=== PATIENT | female | born 1985 | race Hispanic/Latino ===

== ENCOUNTER 2018-03-10 16:51 | Emergency (ER) | payer SELFPAY ==
--- NOTE | 2018-03-10 18:06 | EDPHYS ---
Physician Documentation [facility] Name: Zeenat Santizo Age: 32 yrs Sex: Female : 1985 Arrival Date: 03/10/2018 Time: 16:53 Bed 25 Private MD: None, None ED Physician Blas Edgar HPI: 03/10 17:15 This 32 yrs old Female presents to ER via Ambulatory with complaints of cp Headache, Sore Throat. 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 - Social history:: Smoking status: Patient/guardian denies using tobacco. ROS: 17:20 Constitutional: Negative for body aches, chills, fever, poor PO intake. cp 17:20 Eyes: Negative for injury, pain, redness, and discharge. cp 17:20 ENT: Positive for sore throat, Negative for drainage from ear(s), ear pain, sinus pain, difficulty swallowing, difficulty handling secretions, hoarseness. 17:20 Neck: Negative for pain with movement, pain at rest, stiffness. 17:20 Cardiovascular: Negative for chest pain, edema, palpitations. 17:20 Respiratory: Negative for cough, shortness of breath, wheezing. 17:20 Abdomen/GI: Negative for abdominal pain, nausea, vomiting, and diarrhea. 17:20 Skin: Negative for cellulitis, rash. 17:20 Neuro: Positive for headache, Negative for altered mental status, weakness. 17:20 All other systems are negative. Exam: 17:25 Constitutional: The patient appears in no acute distress, alert, awake, non-toxic, well cp developed, well nourished. 17:25 Head/Face: Normocephalic, atraumatic. cp 17:25 Eyes: Periorbital structures: appear normal, Conjunctiva: normal, no exudate, no injection, Sclera: no appreciated abnormality, Lids and lashes: appear normal, bilaterally. Vital Signs: 16:57 BP 146 / 106; Pulse 95; Resp 16; Temp 97.8(TE); Pulse Ox 98% on R/A; Weight 108.86 kg; la1 Height 5 ft. 5 in. (165.10 cm); 18:11 BP 138 / 89; Pulse 92; Resp 16; Pulse Ox 100% ; tl3 16:57 Body Mass Index 39.94 (108.86 kg, 165.10 cm) la1 MDM: 17:03 Patient medically screened. 18:04 Data reviewed: vital signs, nurses notes, lab test result(s), and as a result, I will cp discharge patient. 18:04 Counseling: I had a detailed discussion with the patient and/or guardian regarding: the cp historical points, exam findings, and any diagnostic results supporting the discharge/admit diagnosis, lab results, to return to the emergency department if symptoms worsen or persist or if there are any questions or concerns that arise at home. 03/10 17:09 Order name: Strep; Complete Time: 18:02 03/10 18:02 Interpretation: Reviewed. 03/10 17:57 Order name: Throat Culture EDSD Administered Medications: No medications were administered Disposition: 03/10/18 18:06 Discharged to Home. Impression: Acute pharyngitis. - Condition is Stable. - Discharge Instructions: Canker Sores, Pharyngitis, Viral Infections, [id number]. - Prescriptions for Ibuprofen 800 mg Oral Tablet - take 1 tablet by ORAL route every 8 hours As needed take with food; 30 tablet. - Medication Reconciliation Form, Thank You Letter, Antibiotic Education, Prescription Opioid Use form. - Follow up: Private Physician; When: 2 - 3 days; Reason: Recheck today's complaints. - Problem is new. - Symptoms are unchanged. Addendum: 03/12/2018 09:06 Co-signature as Attending Physician, Blas Edgar MD I agree with the assessment and c mendez plan of care. Signatures: Dispatcher [employer] EDSD Blas Edgar MD MD cha Attema, Lee, RN RN la1 Blas Javed PA PA cp Lowrey, Tammy, RN RN tl3
--- NOTE | 2018-03-10 18:06 | ER ---
Nurse's Notes [facility] Name: Zeenat Santizo Age: 32 yrs Sex: Female : 1985 Arrival Date: 03/10/2018 Time: 16:53 Bed 25 Private MD: None, None Diagnosis: Acute pharyngitis Presentation: 03/10 16:56 Presenting complaint: Patient states: I have had some pain in the right side of the la1 back of my throat and I feel a fullness/pressure in my head as well as some dizziness. Transition of care: patient was not received from another setting of care. Onset of symptoms was March 10, 2018. Initial Sepsis Screen: Does the patient meet any 2 criteria? No. Patient's initial sepsis screen is negative. Does the patient have a suspected source of infection? No. Patient's initial sepsis screen is negative. Care prior to arrival: None. 16:56 Method Of Arrival: Ambulatory la1 16:56 Acuity: ANNETTE 3 la1 Triage Assessment: 18:19 Headache History: Denies prior headaches. General: Appears comfortable, well groomed, tl3 well developed, well nourished, Behavior is appropriate for age. Pain: Pain currently is 5 out of 10 on a pain scale. Pain began 1 week and a half ago Also complains of no other associated symptoms. 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 - Social history:: Smoking status: Patient/guardian denies using tobacco. Screenin:35 Abuse screen: Denies threats or abuse. Nutritional screening: No deficits noted. tl3 Tuberculosis screening: No symptoms or risk factors identified. Fall Risk None identified. Assessment: 17:35 General: Appears in no apparent distress. well groomed, well developed, well nourished, tl3 Behavior is calm, cooperative, appropriate for age. Pain: Complains of pain in right side of throat. Neuro: Level of Consciousness is awake, alert, obeys commands, Oriented to person, place, time, situation, Appropriate for age. Cardiovascular: Heart tones S1 S2 present. Respiratory: Breath sounds are clear bilaterally. GI: No signs and/or symptoms were reported involving the gastrointestinal system. : No signs and/or symptoms were reported regarding the genitourinary system. EENT: Reports difficulty swallowing since for the last week and a half, but getting worse the last couple of days. Derm: No signs and/or symptoms reported regarding the dermatologic system. Musculoskeletal: No signs and/or symptoms reported regarding the musculoskeletal system. 18:11 Reassessment: Patient appears in no apparent distress at this time. No changes from tl3 previously documented assessment. Patient and/or family updated on plan of care and expected duration. Pain level reassessed. Patient is alert, oriented x 3, equal unlabored respirations, skin warm/dry/pink. Vital Signs: 16:57 BP 146 / 106; Pulse 95; Resp 16; Temp 97.8(TE); Pulse Ox 98% on R/A; Weight 108.86 kg; la1 Height 5 ft. 5 in. (165.10 cm); 18:11 BP 138 / 89; Pulse 92; Resp 16; Pulse Ox 100% ; tl3 16:57 Body Mass Index 39.94 (108.86 kg, 165.10 cm) la1 ED Course: 16:53 Patient arrived in ED. mr 16:53 None, None is Private Physician. mr 16:56 Triage completed. la1 16:57 Arm band placed on right wrist. la1 17:03 [facility]aved [facility]. cp 17:03 Blas Edgar MD is Attending Physician. cp 17:32 Grace Mclean, MG is Primary Nurse. tl3 17:35 No apparent distress. Awaiting lab results. tl3 17:35 Patient has correct armband on for positive identification. Bed in low position. Call tl3 light in reach. Side rails up X 1. Adult w/ patient. 17:35 No provider procedures requiring assistance completed. Strep swab sent to lab. tl3 18:11 Patient did not have IV access during this emergency room visit. tl3 18:20 Throat Culture Sent. tl3 Administered Medications: No medications were administered Outcome: 18:06 Discharge ordered by . cp 18:11 Discharged to home ambulatory. tl3 18:11 Condition: good 18:11 Discharge instructions given to patient, Instructed on discharge instructions, follow up and referral plans. medication usage, Demonstrated understanding of instructions, follow-up care, medications, Prescriptions given X 1, stressed using equal mixture of Benadryl and Liquid antiacid as a swish and spit mixture to numb throat pain 18:21 Patient left the ED. tl3 Signatures: Zeenat Pisano Lee, RN RN la1 Blas Javed PA PA cp Lowrey, Tammy, MG RN tl3
== END 2018-03-10 18:21 | disposition home or self-care (01) ==
LOC: ER 16:51
DX: J02.9 Acute pharyngitis, unspecified (principal)
CPT/HCPCS: 87070; 87081; 99283

== ENCOUNTER 2019-02-28 10:09 | Emergency (ER) | payer SELFPAY ==
[2019-02-28] MEDS ORDERED: ONDANSETRON 4 MG/2 ML VIAL ONE (10:55)
[2019-02-28] MEDS ORDERED: MORPHINE 4 MG/ML SYR ONE (10:55)
[2019-02-28] MEDS ORDERED: NA CHLORIDE 0.9% 1,000 ML ONE (10:55)
[2019-02-28 11:47] LABS: Absolute Lymphocytes (CBC) 0.8 K/uL (0.7-4.9); Absolute Monocytes 0.7 K/uL (0.1-1.3); Absolute Neutrophil 1.6 K/uL (1.8-8.0); Basophils % 1.1 % (0-1.3); Eosinophils % 1.9 % (0-4.4); Hematocrit 41.6 % (36.0-45.0); MPV 9.8 fL (7.6-11.3); Monocytes % 22.1 % (3.3-12.3); RBC Red Blood Cell Count 4.98 M/uL (3.86-4.86)
[2019-02-28 11:59] LABS: ALT/SGPT 48 U/L (12-78); AST/SGOT 30 U/L (15-37); Albumin 3.3 g/dL (3.4-5.0); Alkaline Phosphatase 115 U/L (45-117); BUN Blood Urea Nitrogen 9 mg/dL (7-18); Bicarbonate 27 mmol/L (21-32); Bilirubin Direct 0.2 mg/dL (0-0.2); Bilirubin Total 0.8 mg/dL (0.2-1.0); Glucose Level 258 mg/dL (74-106); Lipase 86 U/L (73-393); Potassium 3.7 mmol/L (3.5-5.1); Sodium Level 139 mmol/L (136-145)
[2019-02-28 12:19] LABS: Urine Blood 2+ (NEG); Urine Glucose 2+ (NEG); Urine Protein NEGATIVE (NEG); Urine Specific Gravity 1.015 (1.005-1.030); Urine pH 5.5 (5.0-7.0)
[2019-02-28 12:34] LABS: Blood Morphology Comment NOT SEEN (NOT SEEN); Platelet Estimate DECR
--- NOTE | 2019-02-28 13:03 | RAD REPORT ---
EXAM DESCRIPTION: CT - Abdomen Pelvis W Contrast - 02/28/2019 12:53 pm CLINICAL HISTORY: Abdominal pain, back pain, flank pain COMPARISON: CT imaging February 2017 and January 2015 TECHNIQUE: Biphasic, helical CT imaging of the abdomen and pelvis was performed following 100 ml non -ionic IV contrast. Oral contrast was given. All CT scans are performed using dose optimization technique as appropriate and may include automated exposure control or mA/KV adjustment according to patient size. FINDINGS: No suspicious findings in the lung bases. Fatty infiltration changes are again noted in the liver. No focal liver lesion identified. Spleen and pancreas show no suspicious findings. Gallbladder and biliary tree are also without suspicious findi ng. Symmetric renal function is seen with no hydronephrosis or suspicious renal mass. No pyelonephritis o r acute parenchymal process. Partially filled urinary bladder shows no suspicious finding. Uterus and ovaries show no suspicious findings. Approximately 2.7 centimeter right adrenal mass has not changed back to 2015. No dilated bowel loops or bowel wall thickening. No appendicitis. No acute GI process identifiable. N o free air, free fluid or inflammatory stranding. No hernia, mass or bulky lymphadenopathy. No suspicious bony findings. IMPRESSION: No acute or emergent CT abdomen and pelvis findings. Fatty infiltration of the liver and right adrenal mass are stable back to 2015.
[2019-02-28] MEDS ORDERED: LIDOCAINE VISCOUS 2% SOLN 15 ML UDC ONE (14:14)
[2019-02-28] MEDS ORDERED: MAGNE/ALUM HYDROXD 30 ML UCUP ONE (14:14)
--- NOTE | 2019-02-28 14:59 | EDPHYS ---
Physician Documentation [facility] Name: Zeenat Santizo Age: 33 yrs Sex: Female : 1985 Arrival Date: 02/28/2019 Time: 10:11 Bed 15 Private MD: None, None ED Physician Denver Yee HPI: 02/28 11:00 This 33 yrs old Female presents to ER via Ambulatory with complaints of Back pm1 Pain, Vomiting. 11:00 The patient presents with pain that is acute, with no known mechanism of injury. The pm1 symptoms are located in the mid back area and left mid back. Onset: The symptoms/episode began/occurred 3 day(s) ago. Location: abdomen. Associated signs and symptoms: Pertinent positives: nausea, Pertinent negatives: chest pain, constipation, dysuria, fever, headache, numbness, tingling, vomiting, diarrhea. The problem was sustained without known cause. Modifying factors: The patient symptoms are alleviated by nothing, the patient symptoms are aggravated by nothing. The patient has not experienced similar symptoms in the past. The patient has not recently seen a physician. 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 - Ebola Screening: : No symptoms or risks identified at this time. - Social history:: Smoking status: Patient/guardian denies using tobacco. ROS: 11:00 Constitutional: Negative for fever, chills, and weight loss, Eyes: Negative for injury, pm1 pain, redness, and discharge, ENT: Negative for injury, pain, and discharge, Neck: Negative for injury, pain, and swelling, Cardiovascular: Negative for chest pain, palpitations, and edema, Respiratory: Negative for shortness of breath, cough, wheezing, and pleuritic chest pain. 11:00 : Negative for injury, bleeding, discharge, and swelling, MS/Extremity: Negative for injury and deformity, Skin: Negative for injury, rash, and discoloration, Neuro: Negative for headache, weakness, numbness, tingling, and seizure. 11:00 Abdomen/GI: Positive for abdominal pain, nausea, Negative for diarrhea, constipation. 11:00 Back: Positive for pain at rest, of the left mid back and right mid back, Negative for injury or acute deformity. Exam: 11:00 Constitutional: This is a well developed, well nourished patient who is awake, alert, pm1 and in no acute distress. Head/Face: Normocephalic, atraumatic. Eyes: Pupils equal round and reactive to light, extra-ocular motions intact. Lids and lashes normal. Conjunctiva and sclera are non-icteric and not injected. Cornea within normal limits. Periorbital areas with no swelling, redness, or edema. ENT: Nares patent. No nasal discharge, no septal abnormalities noted. Tympanic membranes are normal and external auditory canals are clear. Oropharynx with no redness, swelling, or masses, exudates, or evidence of obstruction, uvula midline. Mucous membranes moist. Neck: Trachea midline, no thyromegaly or masses palpated, and no cervical lymphadenopathy. Supple, full range of motion without nuchal rigidity, or vertebral point tenderness. No Meningismus. Chest/axilla: Normal chest wall appearance and motion. Nontender with no deformity. No lesions are appreciated. Cardiovascular: Regular rate and rhythm with a normal S1 and S2. No gallops, murmurs, or rubs. Normal PMI, no JVD. No pulse deficits. Respiratory: Lungs have equal breath sounds bilaterally, clear to auscultation and percussion. No rales, rhonchi or wheezes noted. No increased work of breathing, no retractions or nasal flaring. 11:00 Back: No spinal tenderness. No costovertebral tenderness. Full range of motion. Skin: Warm, dry with normal turgor. Normal color with no rashes, no lesions, and no evidence of cellulitis. MS/ Extremity: Pulses equal, no cyanosis. Neurovascular intact. Full, normal range of motion. 11:00 Abdomen/GI: Inspection: abdomen appears normal, Bowel sounds: normal, Palpation: soft, mild abdominal tenderness, in the epigastric area, mass, is not appreciated, rebound tenderness, is not appreciated. 11:00 Neuro: Orientation: is normal, Motor: is normal, moves all fours, Gait: is steady, at a normal pace, without difficulty. Vital Signs: 10:20 BP 146 / 76; Pulse 90; Resp 18 S; Temp 97.0(TE); Pulse Ox 100% on R/A; aa5 11:17 BP 115 / 71; Pulse 88; Resp 17; Pulse Ox 99% on R/A; mh5 13:10 BP 124 / 70; Pulse 76; Resp 18; Pulse Ox 100% on R/A; mh5 14:30 BP 126 / 77; Pulse 72; Resp 18; Pulse Ox 100% ; ca1 MDM: 10:24 Patient medically screened. pm1 13:43 Data reviewed: vital signs. Data interpreted: Pulse oximetry: on room air is 100 %. pm1 Interpretation: normal. Counseling: I had a detailed discussion with the patient and/or guardian regarding: the historical points, exam findings, and any diagnostic results supporting the discharge/admit diagnosis, lab results, radiology results, the need for outpatient follow up, to return to the emergency department if symptoms worsen or persist or if there are any questions or concerns that arise at home. 15:08 ED course: Patient with pain improvement with GI cocktail. pm1 02/28 10:29 Order name: Basic Metabolic Panel pm1 02/28 10:29 Order name: CBC with Diff; Complete Time: 12:35 pm1 02/28 10:29 Order name: Creatinine for Radiology; Complete Time: 12:06 pm1 02/28 10:29 Order name: Hepatic Function; Complete Time: 12:06 pm1 02/28 10:29 Order name: Lipase; Complete Time: 12:06 pm1 02/28 10:30 Order name: Basic Metabolic Panel; Complete Time: 12:06 EDMS 02/28 10:29 Order name: CT Abd/Pelvis - W/Contrast: IV contrast only; Complete Time: 13:09 pm1 02/28 11:54 Order name: Manual Differential; Complete Time: 12:35 EDMS 02/28 12:08 Order name: Urine Dipstick--Ancillary (enter results); Complete Time: 12:23 aa5 02/28 12:08 Order name: Urine --Ancillary (enter results); Complete Time: 12:23 aa5 02/28 10:29 Order name: IV Saline Lock; Complete Time: 10:36 pm1 02/28 10:29 Order name: Labs collected and sent; Complete Time: 10:36 pm1 02/28 10:29 Order name: Urine Dipstick-Ancillary (obtain specimen); Complete Time: 12:01 pm1 02/28 10:29 Order name: Urine Test (obtain specimen); Complete Time: 12:01 pm1 Administered Medications: 10:55 Drug: Zofran 4 mg Route: IVP; Site: right forearm; sg 12:01 Follow up: Response: No adverse reaction; Nausea is decreased ca1 11:00 Drug: NS 0.9% 1000 ml Route: IV; Rate: 1000 ml; Site: right forearm; sg 11:00 Drug: morphine 2 mg Route: IVP; Site: right forearm; sg 12:01 Follow up: Response: No adverse reaction; Pain is decreased ca1 14:00 Drug: GI Cocktail without - (Maalox Suspension 30 ml, Lidocaine Liquid 2 % 15 ca1 ml) Route: PO; 15:00 Follow up: Response: No adverse reaction; Pain is decreased ca1 Disposition: 02/28/19 14:58 Discharged to Home. Impression: Unspecified abdominal pain. - Condition is Stable. - Discharge Instructions: Abdominal Pain, Adult. - Prescriptions for Pepcid 20 mg Oral Tablet - take 1 tablet by ORAL route every 12 hours for 10 days; 20 tablet. - Medication Reconciliation Form, Thank You Letter, Antibiotic Education, Prescription Opioid Use form. - Follow up: Emergency Department; When: As needed; Reason: Worsening of condition. Follow up: Private Physician; When: 2 - 3 days; Reason: Recheck today's complaints, Continuance of care, Re-evaluation by your physician. - Problem is new. - Symptoms have improved. Addendum: 03/03/2019 00:12 Co-signature as Attending Physician, Denver Yee MD. g s Signatures: Dispatcher [employer] EDMS Sadi Rowland RN RN sg Sybil Andrea RN RN aa5 Simon Gomez, READING TEACHER READING TEACHER pm1 Denver Yee MD MD Loan Epstein, RN RN ca1 Corrections: (The following items were deleted from the chart) 02/28 15:13 14:58 02/28/2019 14:58 Discharged to Home. Impression: Unspecified abdominal pain. ca1 Condition is Stable. Forms are Medication Reconciliation Form, Thank You Letter, Antibiotic Education, Prescription Opioid Use. Follow up: Emergency Department; When: As needed; Reason: Worsening of condition. Follow up: Private Physician; When: 2 - 3 days; Reason: Recheck today's complaints, Continuance of care, Re-evaluation by your physician. Problem is new. Symptoms have improved. pm1
--- NOTE | 2019-02-28 14:59 | ER ---
Nurse's Notes [facility] Name: Zeenat Santizo Age: 33 yrs Sex: Female : 1985 Arrival Date: 02/28/2019 Time: 10:11 Bed 15 Private MD: None, None Diagnosis: Unspecified abdominal pain Presentation: 02/28 10:20 Presenting complaint: Patient states: mid-back pain radiating around to lateral aspect aa5 of abdomen since Monday, pt reports nausea since yesterday. 10:20 Transition of care: patient was not received from another setting of care. Onset of aa5 symptoms was February 2019. Risk Assessment: Do you want to hurt yourself or someone else? Patient reports no desire to harm self or others. Initial Sepsis Screen: Does the patient meet any 2 criteria? No. Patient's initial sepsis screen is negative. Does the patient have a suspected source of infection? No. Patient's initial sepsis screen is negative. Care prior to arrival: None. 10:20 Acuity: ANNETTE 3 aa5 10:20 Method Of Arrival: Ambulatory aa5 [employer]: 10:27 LMP 01/30/2019 aa5 Historical: - Allergies: 10:20 No Known Allergies; aa5 - PMHx: 10:20 None; aa5 - PSHx: 10:20 ; back abscess; aa5 - Immunization history:: Adult Immunizations up to date. - Ebola Screening: : No symptoms or risks identified at this time. - Social history:: Smoking status: Patient/guardian denies using tobacco. Screenin:00 Abuse screen: Denies threats or abuse. Denies injuries from another. Nutritional ca1 screening: No deficits noted. Tuberculosis screening: No symptoms or risk factors identified. Fall Risk None identified. Assessment: 10:25 General: Appears in no apparent distress. well groomed, well developed, well nourished, sg Behavior is calm, cooperative, appropriate for age. Pain: Complains of pain in lumbar area, left mid back and right mid back Quality of pain is described as aching, tender. Respiratory: Airway is patent Respiratory effort is even, unlabored, Respiratory pattern is regular, symmetrical. GI: Abdomen is round non-distended, obese, Bowel sounds present X 4 quads. Reports nausea, vomiting. : Reports pain in bilateral flank(s). Derm: Skin is pink, warm \\T\\ dry. 10:55 Reassessment: pt voices concerns about IV morphine ordered, pt reports " I dont like sg the way the morphine makes me feel, with the pressure in my head and chest." pt educated on effects of medication, offered half of ordered dose, pt reports this is ok, pt medicated, Simon PYROMETER OPERATOR notified 2 mg IVP morphine administered. 12:00 Reassessment: Patient appears in no apparent distress at this time. Patient and/or ca1 family updated on plan of care and expected duration. Pain level reassessed. Patient is alert, oriented x 3, equal unlabored respirations, skin warm/dry/pink. 12:55 Reassessment: Patient appears in no apparent distress at this time. Patient is alert, ca1 oriented x 3, equal unlabored respirations, skin warm/dry/pink. 13:50 Reassessment: Patient appears in no apparent distress at this time. Patient is alert, ca1 oriented x 3, equal unlabored respirations, skin warm/dry/pink. Vital Signs: 10:20 BP 146 / 76; Pulse 90; Resp 18 S; Temp 97.0(TE); Pulse Ox 100% on R/A; aa5 11:17 BP 115 / 71; Pulse 88; Resp 17; Pulse Ox 99% on R/A; mh5 13:10 BP 124 / 70; Pulse 76; Resp 18; Pulse Ox 100% on R/A; mh5 14:30 BP 126 / 77; Pulse 72; Resp 18; Pulse Ox 100% ; ca1 ED Course: 10:11 Patient arrived in ED. mr 10:11 None, None is Private Physician. mr 10:20 Arm band placed on Patient placed in an exam room, on a stretcher. aa5 10:24 Simon Gomez, JANICE is PHCP. pm1 10:24 Denver Yee MD is Attending Physician. pm1 10:26 Triage completed. aa5 10:36 Sadi Rowland, MG is Primary Nurse. sg 11:09 Initial lab(s) drawn, by me, sent to lab. Inserted saline lock: 22 gauge in right 5 forearm, using aseptic technique. Blood collected. 11:10 Patient has correct armband on for positive identification. Bed in low position. Call [facility] light in reach. Side rails up X 1. Pulse ox on. NIBP on. 11:28 Lab(s) recollected, by me, sent to lab. ca1 11:40 Radiology exam delayed due to lab results not completed at this time. (BUN/Creatinine) sj test not completed at this time. 12:53 CT Abd/Pelvis - W/Contrast: IV contrast only In Process Unspecified. EDMS 15:12 No provider procedures requiring assistance completed. IV discontinued, intact, ca1 bleeding controlled, No redness/swelling at site. Pressure dressing applied. Administered Medications: 10:55 Drug: Zofran 4 mg Route: IVP; Site: right forearm; sg 12:01 Follow up: Response: No adverse reaction; Nausea is decreased ca1 11:00 Drug: NS 0.9% 1000 ml Route: IV; Rate: 1000 ml; Site: right forearm; sg 11:00 Drug: morphine 2 mg Route: IVP; Site: right forearm; sg 12:01 Follow up: Response: No adverse reaction; Pain is decreased ca1 14:00 Drug: GI Cocktail without - (Maalox Suspension 30 ml, Lidocaine Liquid 2 % 15 ca1 ml) Route: PO; 15:00 Follow up: Response: No adverse reaction; Pain is decreased ca1 Outcome: 14:58 Discharge ordered by MD. pm1 15:12 Discharged to home ambulatory. ca1 15:12 Condition: stable 15:12 Instructed on discharge instructions, follow up and referral plans. medication usage, Demonstrated understanding of instructions, follow-up care, medications, Prescriptions given X 1. 15:13 Patient left the ED. ca1 Signatures: Dispatcher [employer] EDMS Sadi Rowland RN RN Pisano Nicole AquinoMariana Audri RN RN aa5 Simon Gomez, HEAD SCHOOL CUSTODIAN HEAD SCHOOL CUSTODIAN pm1 Zeenat Gaspar 5 Loan Epstein RN RN ca1 Corrections: (The following items were deleted from the chart) 10:28 10:25 BP 146 / 76; Pulse 90bpm; Resp 18bpm; Spontaneous; Pulse Ox 100% RA; Temp 97.0F aa5 Temporal; aa5
== END 2019-02-28 15:13 | disposition home or self-care (01) ==
LOC: ER 10:09
DX: R10.9 Unspecified abdominal pain (principal); R11.0 Nausea
CPT/HCPCS: 36415; 74177; 80048; 80076; 81003; 81025; 83690; 85025; 96374; 96375; 99284; J2405; J7030; Q9967

== ENCOUNTER 2022-03-31 18:10 | Emergency (ER) | payer OTHER, SELFPAY ==
[2022-03-31] MEDS ORDERED: IBUPROFEN 200 MG TAB PO ONE ×2 (18:55→18:56)
[2022-03-31] MEDS ORDERED: HYDROCODONE/APAP 10/325 TAB ONE (18:55)
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
[2022-03-31 20:21] VITALS: BP 142/89; TEMP 97.9; O2SAT 100
== END 2022-03-31 20:12 | disposition home or self-care (01) ==
LOC: ER 18:10
DX: S16.1XXA Strain of muscle, fascia and tendon at neck level, initial encounter (principal); M54.50 Low back pain, unspecified; V49.40XA Driver injured in collision with unspecified motor vehicles in traffic accident, initial encounter; E11.9 Type 2 diabetes mellitus without complications
CPT/HCPCS: 70450; 71250; 72125; 99284

== ENCOUNTER 2022-09-20 13:48 | Emergency (ER) | payer SELFPAY ==
--- NOTE | 2022-09-20 14:18 | ER ---
Nurse's Notes [facility] Name: Zeenat Santizo Age: 37 yrs Sex: Female : 1985 Arrival Date: 09/20/2022 Time: 13:52 Bed 12 Private MD: Diagnosis: Viral infection, unspecified Presentation: 09/20 14:15 Chief complaint: Patient states: Headache, fever, body aches, sine yesterday. iw Coronavirus screen: Client presents with at least one sign or symptom that may indicate coronavirus-19. Ebola Screen: Patient negative for fever greater than or equal to 101.5 degrees Fahrenheit, and additional compatible Ebola Virus Disease symptoms Patient denies exposure to infectious person. Patient denies travel to an Ebola-affected area in the 21 days before illness onset. No symptoms or risks identified at this time. Initial Sepsis Screen: Does the patient meet any 2 criteria? No. Patient's initial sepsis screen is negative. Does the patient have a suspected source of infection? No. Patient's initial sepsis screen is negative. Risk Assessment: Do you want to hurt yourself or someone else? Patient reports no desire to harm self or others. Onset of symptoms was September 19, 2022. 14:15 Method Of Arrival: Ambulatory iw 14:15 Acuity: ANNETTE 4 iw Triage Assessment: 14:37 General: Appears in no apparent distress. Behavior is calm, cooperative. iw 14:38 Headache History: Denies prior headaches. Neuro: No deficits noted. [place] iw Agitation-Sedation Scale (RASS):. 14:40 Pain: Also complains of no other associated symptoms. iw Historical: - Allergies: 14:16 No Known Allergies; iw - PMHx: 14:16 diabetes mellitus; iw Screenin:30 Abuse screen: Denies threats or abuse. Denies injuries from another. Nutritional iw screening: No deficits noted. Tuberculosis screening: No symptoms or risk factors identified. Assessment: 14:15 General: Appears in no apparent distress. Behavior is calm, cooperative. Pain: iw Complains of pain in head. Neuro: Level of Consciousness is awake, alert, obeys commands, Oriented to person, place, time, situation, Moves all extremities. Cardiovascular: Patient's skin is warm and dry. Respiratory: Respiratory effort is even, unlabored, Respiratory pattern is regular, symmetrical. Derm: Skin is intact, is healthy with good turgor. Musculoskeletal: Range of motion: intact in all extremities. Vital Signs: 14:15 BP 123 / 65; Pulse 114; Resp 18; Temp 99.4; Pulse Ox 99% on R/A; iw ED Course: 13:52 Patient arrived in ED. as 13:52 [facility]C [facility] snw 14:15 Nadine Schwartz, RN is Primary Nurse. iw 14:16 Triage completed. iw 14:17 Arm band placed on. iw 14:19 Biju Trammell MD is Attending Physician. snw 14:37 No provider procedures requiring assistance completed. Patient did not have IV access iw during this emergency room visit. Administered Medications: 14:23 Drug: [place] (HYDROcodone-acetaminophen) 10 mg-325 mg 1 tabs Route: PO; iw 14:45 Follow up: Response: No adverse reaction iw 14:23 Drug: Phenergan (promethazine) 25 mg Route: PO; iw 14:45 Follow up: Response: No adverse reaction iw Outcome: 14:18 Discharge ordered by . snw 14:38 Discharged to home ambulatory, with family. iw 14:38 Condition: good 14:38 Discharge instructions given to patient, Instructed on discharge instructions, follow up and referral plans. medication usage, Demonstrated understanding of instructions, follow-up care, medications, Prescriptions given X 2. 14:38 Patient left the ED. iw Signatures: Gabby Orta FNP-C [employer]PL[employer]GER-Csnw Shani Gaspar as Nadine Schwartz, RN RN iw
--- NOTE | 2022-09-20 14:18 | EDPHYS ---
Physician Documentation [facility] Name: Zeenat Santizo Age: 37 yrs Sex: Female : 1985 Arrival Date: 09/20/2022 Time: 13:52 Bed 12 Private MD: ED Physician Biju Trammell HPI: 09/20 14:21 This 37 yrs old Female presents to ER via Ambulatory with complaints of snw Headache, Chest Pain, Cough, Fever. 14:21 The patient or guardian reports cough, flu symptoms, low-grade fever, myalgias, no snw appetite. Onset: The symptoms/episode began/occurred suddenly, 1 day(s) ago, and became persistent. Associated signs and symptoms: Pertinent positives: chest pain, earache, fever, rhinorrhea, sore throat. Severity of symptoms: At their worst the symptoms were moderate in the emergency department the symptoms are unchanged. The patient has not experienced similar symptoms in the past. The patient has not recently seen a physician. Historical: - Allergies: 14:16 No Known Allergies; iw - PMHx: 14:16 diabetes mellitus; iw ROS: 14:20 Eyes: Negative for injury, pain, redness, and discharge. snw 14:20 Neck: Negative for injury, pain, and swelling, Cardiovascular: Negative for chest pain, palpitations, and edema. 14:20 Abdomen/GI: Negative for abdominal pain, nausea, vomiting, diarrhea, and constipation, Back: Negative for injury and pain, : Negative for injury, bleeding, discharge, and swelling, MS/Extremity: Negative for injury and deformity, Skin: Negative for injury, rash, and discoloration. 14:20 Constitutional: Positive for body aches, chills, fatigue, fever, malaise, poor PO intake. 14:20 ENT: Positive for nasal discharge, sinus congestion, sinus pain, sore throat. 14:20 Respiratory: Positive for cough, with no reported sputum. 14:20 Neuro: Positive for headache. Exam: 14:20 Head/Face: Normocephalic, atraumatic. Eyes: Pupils equal round and reactive to light, snw extra-ocular motions intact. Lids and lashes normal. Conjunctiva and sclera are non-icteric and not injected. Cornea within normal limits. Periorbital areas with no swelling, redness, or edema. ENT: Nares patent. No nasal discharge, no septal abnormalities noted. Tympanic membranes are normal and external auditory canals are clear. Oropharynx with no redness, swelling, or masses, exudates, or evidence of obstruction, uvula midline. Mucous membranes moist. Neck: Trachea midline, no thyromegaly or masses palpated, and no cervical lymphadenopathy. Supple, full range of motion without nuchal rigidity, or vertebral point tenderness. No Meningismus. Chest/axilla: Normal chest wall appearance and motion. Nontender with no deformity. No lesions are appreciated. 14:20 Respiratory: Lungs have equal breath sounds bilaterally, clear to auscultation and percussion. No rales, rhonchi or wheezes noted. No increased work of breathing, no retractions or nasal flaring. Abdomen/GI: Soft, non-tender, with normal bowel sounds. No distension or tympany. No guarding or rebound. No evidence of tenderness throughout. Back: No spinal tenderness. No costovertebral tenderness. Full range of motion. Skin: Warm, dry with normal turgor. Normal color with no rashes, no lesions, and no evidence of cellulitis. MS/ Extremity: Pulses equal, no cyanosis. Neurovascular intact. Full, normal range of motion. Neuro: Awake and alert, GCS 15, oriented to person, place, time, and situation. Cranial nerves II-XII grossly intact. Motor strength 5/5 in all extremities. Sensory grossly intact. Cerebellar exam normal. Normal gait. 14:20 Constitutional: The patient appears alert, awake, uncomfortable. 14:20 Cardiovascular: Rate: tachycardic, Heart sounds: normal. Vital Signs: 14:15 BP 123 / 65; Pulse 114; Resp 18; Temp 99.4; Pulse Ox 99% on R/A; iw MDM: 14:05 Patient medically screened. snw 14:19 Data reviewed: vital signs, nurses notes. Data interpreted: Pulse oximetry: on room air snw is 99 %. Interpretation: normal. Counseling: I had a detailed discussion with the patient and/or guardian regarding: the historical points, exam findings, and any diagnostic results supporting the discharge/admit diagnosis, the need for outpatient follow up, to return to the emergency department if symptoms worsen or persist or if there are any questions or concerns that arise at home. Special discussion: Based on the history and exam findings, there is no indication for further emergent testing or inpatient evaluation. I discussed with the patient/guardian the need to see the primary care provider for further evaluation of the symptoms. 14:28 ED course: declined testing. snw Administered Medications: 14:23 Drug: [place] (HYDROcodone-acetaminophen) 10 mg-325 mg 1 tabs Route: PO; iw 14:45 Follow up: Response: No adverse reaction iw 14:23 Drug: Phenergan (promethazine) 25 mg Route: PO; iw 14:45 Follow up: Response: No adverse reaction iw Disposition: 17:31 Co-signature as Attending Physician, Biju Trammell MD. rn Disposition Summary: 09/20/22 14:18 Discharge Ordered Location: Home snw Condition: Stable snw Diagnosis - Viral infection, unspecified snw Followup: snw - With: Emergency Department - When: As needed - Reason: Worsening of condition Followup: snw - With: Private Physician - When: 2 - 3 days - Reason: Recheck today's complaints, Continuance of care, Re-evaluation by your physician Discharge Instructions: - Discharge Summary Sheet snw - Fever, Adult snw - Viral Respiratory Infection snw - Rehydration, Adult snw Forms: - Medication Reconciliation Form snw - Thank You Letter snw - Antibiotic Education snw - Prescription Opioid Use snw - Work release form snw Prescriptions: - orphenadrine citrate 100 mg Oral Tablet Sustained Release - take 1 tablet by ORAL route 2 times per day As needed; 20 tablet; Refills: 0, snw Product Selection Permitted - promethazine 25 mg Oral Tablet - take 1 tablet by ORAL route every 6 hours As needed; 20 tablet; Refills: 0, snw Product Selection Permitted Signatures: Gabby Orta FNP-Aris RODRIGUEZ-Margew Nadine Schwartz RN RN iw Biju Trammell MD MD rn
[2022-09-20] MEDS ORDERED: HYDROCODONE/APAP 10/325 TAB ONE (14:21)
[2022-09-20] MEDS ORDERED: PROMETHAZINE 25 MG TABLET ONE (14:21)
[2022-09-20 15:07] VITALS: BP 123/65; TEMP 99.4; O2SAT 99
== END 2022-09-20 14:38 | disposition home or self-care (01) ==
LOC: ER 13:48
DX: B34.9 Viral infection, unspecified (principal); E11.9 Type 2 diabetes mellitus without complications
CPT/HCPCS: 99283; Q0169